=== PATIENT | female | born 1970 | race African-American/Black ===

== ENCOUNTER 2020-01-15 16:20 | Emergency (ER) | payer OTHER ==
[~2020-01-15] VITALS: Ht 167.6 cm; Wt 74.8 kg
[2020-01-15] MEDS ORDERED: DOXYCYCLINE 10100 MG PO (18:42)
[2020-01-15] MEDS ORDERED: NABUMETONE 750750 M1 PO (18:42)
[2020-01-15] MEDS ORDERED: NORCO 5-325 TA1 EAC2 PO (18:42)
[2020-01-15 19:08] VITALS: BP 154/96
== END 2020-01-15 19:08 | disposition home or self-care (01) ==
LOC: M.ERS 16:20
DX: S63.692A Other sprain of right middle finger, initial encounter (principal); L03.011 Cellulitis of right finger; Z90.710 Acquired absence of both cervix and uterus; Z85.3 Personal history of malignant neoplasm of breast; W01.0XXA Fall on same level from slipping, tripping and stumbling without subsequent striking against object, initial encounter; Y93.89 Activity, other specified; Y92.89 Other specified places as the place of occurrence of the external cause; Y99.8 Other external cause status